=== PATIENT | male | born 1960 | race African-American/Black ===

== ENCOUNTER 2019-05-19 10:17 | Emergency (ER) | payer OTHER, SELFPAY ==
--- NOTE | 2019-05-19 10:58 | RAD ---
XR Ankle Rt 3 View STANDARD INDICATION: Mechanical fall with right ankle injury COMPARISON: None. FINDINGS: Bones: Intact. Ankle mortise: Symmetric. Talar Dome: Intact. Subtalar joint: Normal. Visualized hindfoot: Normal. Periarticular soft tissues: There are Monckeberg type calcifications within the soft tissues. IMPRESSION: 1. No acute fracture or subluxation demonstrated.
[2019-05-19] MEDS ORDERED: Ketorolac Tromethamine 30 MG/ML VIAL ONE (11:08)
== END 2019-05-19 11:22 | disposition home or self-care (01) ==
LOC: ERS 10:17
DX: S93.601A Unspecified sprain of right foot, initial encounter (principal); W18.30XA Fall on same level, unspecified, initial encounter
CPT/HCPCS: 96372; J1885

== ENCOUNTER 2019-11-01 09:21 | Emergency (ER) | payer SELFPAY ==
[2019-11-01] MEDS ORDERED: Famotidine 20 MG TAB ONE (09:54)
[2019-11-01] MEDS ORDERED: Dicyclomine 20 MG TAB ONE (09:54)
[2019-11-01] MEDS ORDERED: Lidocaine Viscous Sol 2% 15 ml UD Cup ONE (09:54)
[2019-11-01] MEDS ORDERED: Mag-Al 1200 mg/1200 mg/30 ML UDCUP ONE (09:56)
[2019-11-01 10:20] LABS: ALT (SGPT) 33 U/L (8-55); AST (SGOT) 86 U/L (5-34); Albumin 2.3 g/dL (3.5-5.0); Alkaline Phosphatase 142 U/L (40-110); Anion Gap 10 mmol/L (10-20); BUN (Urea Nitrogen) 11 mg/dL (8.4-25.7); Bilirubin, Total 0.8 mg/dL (0.2-1.2); Calc. Creatinine Clearance 0 mL/min (70-130); Calcium 8.4 mg/dL (7.8-10.44); Carbon Dioxide 23 mmol/L (22-29); Chloride 105 mmol/L (98-107); Estimated GFR-MDRD 90; Globulin 9.1 g/dL (2.4-3.5); Glucose 94 mg/dL (70-105); Lipase 72 U/L (8-78); Potassium 3.9 mmol/L (3.5-5.1); Protein, Total 11.4 g/dL (6.0-8.3); Sodium 134 mmol/L (136-145)
[2019-11-01 10:33] LABS: Band 5 % (5-11); Hemoglobin 13.4 g/dL (14.0-18.0); Lymphocytes 30 % (21-51); MDiff Complete? YES; Mean Corpuscular HGB CONC 31.6 g/dL (32.0-36.0); Mean Corpuscular Hemoglobin 32.9 pg (27.0-31.0); Mean Platelet Volume 9.2 fL (7.4-10.4); Monocytes 11 % (0-10); Neutrophil 52 % (42-75); Platelet Count 81 thou/uL (130-400); Platelet Morphology Comment Appears Decreased; RBC Distribution Width 12.6 % (11.5-14.5); Reactive Lymphocytes 1 % (0-10); Red Blood Cell (RBC) Count 4.07 mill/uL (4.70-6.10); Reflex for Review?? YES; Rouleaux Formation MARKED = >16 cells (100X) (None Seen); White Blood Cell (WBC) Count 3.1 thou/uL (4.8-10.8)
[2019-11-01] MEDS ORDERED: Ondansetron PF 4 MG/2 ML Vial ONE (10:57)
--- NOTE | 2019-11-01 13:05 | RAD ---
CHEST ONE VIEW: 11/01/19 HISTORY: Chest pain and burning after eating. COMPARISON: Prior exam dated 04/11/2014. FINDINGS: The lungs are clear. Heart size is normal appearing. No pleural effusion or pneumothorax is evident. No acute osseous abnormality is noted. IMPRESSION: No acute cardiopulmonary abnormality. POS: BH
--- NOTE | 2019-11-02 15:20 | EKG ---
Test Reason : Blood Pressure : / mmHG Vent. Rate : 092 BPM Atrial Rate : 092 BPM P-R Int : 120 ms QRS Dur : 092 ms QT Int : 368 ms P-R-T Axes : 078 045 061 degrees QTc Int : 455 ms Normal sinus rhythm Incomplete right bundle branch block ST abnormality, possible digitalis effect Abnormal ECG Confirmed by CRIS ZAPATA DO ([id number]), editor newspaper IVONNE DELGADO ([id number]) on 11/02/2019 3:20:12 PM Referred By: Confirmed By:CRIS ZAPATA DO
[2019-11-04 15:13] LABS: IFE-Serum Interpretation Note: (.); IgA - Total IgA (Sendout) 343 mg/dL (90-386); Immunoglobulin - G (Sendout) 6762 mg/dL (603-1613); Immunoglobulin - M (Sendout) 1182 mg/dL (20-172)
[2019-11-05 12:14] LABS: A/G Ratio 0.3 (0.7-1.7); Albumin 2.3 g/dL (2.9-4.4); Alpha 1 0.2 g/dL (0.0-0.4); Alpha 2 0.8 g/dL (0.4-1.0); Beta 0.8 g/dL (0.7-1.3); Gamma 6.4 g/dL (0.4-1.8); Globulin, Total 8.2 g/dL (2.2-3.9); M-Spike Not Observed g/dL (Not Observed); Protein Electrophoresis Intrp Note: (.)
== END 2019-11-01 11:11 | disposition home or self-care (01) ==
LOC: ERS 09:21
DX: R10.13 Epigastric pain (principal); D69.6 Thrombocytopenia, unspecified; R11.0 Nausea; F17.210 Nicotine dependence, cigarettes, uncomplicated; Z79.899 Other long term (current) drug therapy
CPT/HCPCS: 36415; 71045; 80053; 83690; 84165; 84484; 85025; 85060; 86334; 93005; 96374; J2405